=== PATIENT | female | born 1995 | race American Indian/Alaskan Native ===

== ENCOUNTER 2022-01-02 16:17 | Emergency (ER) | payer SELFPAY ==
[2022-01-02 17:51] VITALS: BP 114/78
== END 2022-01-03 07:43 | disposition left against medical advice (07) ==
LOC: ED 16:17
DX: J02.9 Acute pharyngitis, unspecified (principal); Z53.21 Procedure and treatment not carried out due to patient leaving prior to being seen by health care provider

== ENCOUNTER 2022-03-10 11:42 | Emergency (ER) | payer SELFPAY ==
[2022-03-10] MEDS ORDERED: methylPREDNISolone Sod Succinate 125 MG/2 ML INJ IV NR (12:11)
[2022-03-10] MEDS ORDERED: diphenhydrAMINE 50 MG/ML VIAL IV NR (12:11)
[2022-03-10] MEDS ORDERED: FAMOTIDINE 20 MG/2 ML INJ IV NR (12:11)
--- NOTE | 2022-03-10 12:48 | Emergency Department Report ---
ED Allergic Reaction HPI - General Chief complaint: Allergic Reaction Stated complaint: ALLERGIC REACTION Time Seen by Provider: 03/10/22 12:19 Source: patient Mode of arrival: Ambulatory Limitations: No Limitations - History of Present Illness Initial Comments: Patient is 26-year-old female presented ED with complaint of allergic reaction. States she had sexual intercourse last night and woke up this morning around 3 AM with swelling around her eyes and in her pelvic region. She denies contact with any new chemicals. No prior history of allergic reaction. - Related Data Allergies Allergy/AdvReac Type Severity Reaction Status Date / Time acetaminophen [From Percocet] Allergy Hives Verified 03/10/22 12:24 oxycodone [From Percocet] Allergy Hives Verified 03/10/22 12:24 ED Review of Systems ROS: Stated complaint: ALLERGIC REACTION Other details as noted in HPI Constitutional: denies: chills, fever Respiratory: denies: cough, shortness of breath, wheezing Gastrointestinal: denies: abdominal pain, nausea, diarrhea Genitourinary: denies: urgency, dysuria, discharge Musculoskeletal: denies: back pain, joint swelling, arthralgia Skin: other (Edema) Neurological: denies: headache, weakness, paresthesias Psychiatric: denies: anxiety, depression ED Past Medical Hx - Past Medical History Previous Medical History?: Yes - Surgical History Past Surgical History?: Yes - Social History Smoking Status: Light Tobacco Smoker Substance Use Type: None ED Physical Exam - General Limitations: No Limitations General appearance: alert, in no apparent distress - Head Head exam: Present: atraumatic, normocephalic - Eye Eye exam: Present: EOMI, periorbital swelling (Periorbital edema) - Respiratory Respiratory exam: Present: normal lung sounds bilaterally. Absent: respiratory distress - Cardiovascular Cardiovascular Exam: Present: regular rate, normal rhythm, normal heart sounds - GI/Abdominal GI/Abdominal exam: Present: soft. Absent: distended, tenderness - Neurological Exam Neurological exam: Present: alert, oriented X3 - Psychiatric Psychiatric exam: Present: normal affect, normal mood - Skin Skin exam: Present: warm, dry, intact, normal color ED Course Vital Signs 03/10/22 12:31 Temperature 98.5 F Pulse Rate 79 Respiratory 14 Rate Blood Pressure 125/88 O2 Sat by Pulse 100 Oximetry ED Medical Decision Making - Lab Data Result diagrams: 03/10/22 12:24 03/10/22 12:24 - Medical Decision Making Patient given Benadryl, Pepcid and Solu-Medrol. Labs grossly unremarkable. On reassessment patient still has mild periorbital edema however denies any shortness of breath or oral swelling. States she is hungry. Suspect likely mild allergic reaction. She is stable for discharge home with return precautions. Critical care attestation.: If time is entered above; I have spent that time in minutes in the direct care of this critically ill patient, excluding procedure time. ED Disposition Clinical Impression: Allergic reaction Disposition: 01 HOME / SELF CARE / HOMELESS Is pt being admited?: No Condition: Stable Instructions: Allergies, Adult, Jfli-[id number] Additional Instructions: Please follow-up with your regular doctor as needed. If you experience worsening symptoms such as trouble breathing or chest pain please call 911 or return immediately. Time of Disposition: 14:13
[2022-03-10 13:01] LABS: Alanine Aminotransferase 11 units/L (7-56); Albumin 3.7 g/dL (3.9-5); BUN/Creatinine Ratio 18; Blood Urea Nitrogen 14 mg/dL (7-17); Calcium 8.4 mg/dL (8.4-10.2); Hemolysis Index 21
[2022-03-10 13:29] LABS: Basophils % (Auto) 0.5 % (0.0-1.8); Eosinophils # (Auto) 0.1 K/mm3 (0.0-0.4); Eosinophils % (Auto) 0.9 % (0.0-4.3); Hematocrit 35.1 % (30.3-42.9); Hemoglobin 11.6 gm/dl (10.1-14.3); Mean Corpuscular HGB Conc 33 % (30-34); Mean Corpuscular Volume 78 fl (79-97); Monocytes # (Auto) 0.5 K/mm3 (0.0-0.8); Monocytes % (Auto) 5.9 % (0.0-7.3); Platelet Count 409 K/mm3 (140-440); Red Blood Count 4.51 M/mm3 (3.65-5.03); Red Cell Distribution Width 14.6 % (13.2-15.2)
[2022-03-10 15:27] VITALS: BP 110/63
== END 2022-03-10 15:27 | disposition home or self-care (01) ==
LOC: ED 11:42
DX: T78.40XA Allergy, unspecified, initial encounter (principal); F17.200 Nicotine dependence, unspecified, uncomplicated; Z88.5 Allergy status to narcotic agent; Z88.6 Allergy status to analgesic agent; X58.XXXA Exposure to other specified factors, initial encounter
CPT/HCPCS: 36415; 80053; 85025; 96374; 96375; 99283; J1200; J2930; J3490